=== PATIENT | female | born 1960 ===

== ENCOUNTER 2021-03-02 08:06 | Day surgery (SDC) | payer OTHER | END 2021-03-02 14:45 | disposition home or self-care (01) | LOC: AMB-ENDOS 08:06 | PROVIDERS: ATTEND Colon & Rectal Surgery | DX: D12.3 Benign neoplasm of transverse colon (principal); D12.4 Benign neoplasm of descending colon; D12.5 Benign neoplasm of sigmoid colon; Z20.822 Contact with and (suspected) exposure to COVID-19 ==